=== PATIENT | male | born 1970 | race American Indian/Alaskan Native ===

== ENCOUNTER 2016-06-07 09:33 | Emergency (ER) | payer MEDICARE ==
[2016-06-07 09:43] VITALS: BP 111/72
--- NOTE | 2016-06-07 10:12 | Emergency Department Report ---
ED General Adult HPI - General Chief complaint: Upper Respiratory Infection Stated complaint: COUGH/CONGESTION Time Seen by Provider: 06/07/16 09:56 Source: patient Mode of arrival: Ambulatory Limitations: No Limitations - History of Present Illness Initial comments: 45-year-old male presents to the ED complaining about cough, chest congestion, sinus congestion, sore scratchy throat. States taking [id number] medication with no relief. Denies fever, chest pain, shortness of breath, abdominal pain. - Related Data Home Medications Medication Instructions Recorded Confirmed Last Taken Carbidopa/Levodopa 25-100 1 tab PO QID 06/07/16 06/07/16 06/07/16 Previous Rx's Medication Instructions Recorded Last Taken Type ALBUTEROL Inhaler [ProAir HFA 2 puff IH QID PRN #1 inhalation 06/07/16 Unknown Rx Inhaler] Azithromycin [Zithromax Z-ROBERT] 250 mg PO QDAY #1 pack 06/07/16 Unknown Rx Prednisone [predniSONE 10 mg 10 mg PO .TAPER #1 tab.ds.pk 06/07/16 Unknown Rx (6-Day Pack, 21 Tabs)] guaiFENesin/CODEINE [Robitussin AC] 5 ml PO Q6H #120 ml 06/07/16 Unknown Rx Allergies Allergy/AdvReac Type Severity Reaction Status Date / Time amoxicillin trihydrate Allergy Headache Verified 09/05/15 10:24 [From Augmentin] potassium clavulanate Allergy Headache Verified 09/05/15 10:24 [From Augmentin] ED Review of Systems ROS: Stated complaint: COUGH/CONGESTION Other details as noted in HPI Constitutional: chills. denies: fever Eyes: denies: eye pain, eye discharge, vision change ENT: throat pain. denies: ear pain Respiratory: cough. denies: shortness of breath, wheezing Cardiovascular: denies: chest pain, palpitations Endocrine: no symptoms reported Gastrointestinal: denies: abdominal pain, nausea, diarrhea Genitourinary: denies: urgency, dysuria Musculoskeletal: denies: back pain, joint swelling, arthralgia Skin: denies: rash, lesions Neurological: denies: headache, weakness, paresthesias Psychiatric: denies: anxiety, depression Hematological/Lymphatic: denies: easy bleeding, easy bruising ED Past Medical Hx - Past Medical History Previous Medical History?: Yes Hx Headaches / Migraines: Yes Additional medical history: Parkinsons - Surgical History Past Surgical History?: Yes Additional Surgical History: right shoulder, left index finger, groin area, right knee X 3, left knee X 2 - Social History Smoking Status: Never Smoker Substance Use Type: Prescribed - Medications Home Medications: Home Medications Medication Instructions Recorded Confirmed Last Taken Type ALBUTEROL Inhaler [ProAir HFA 2 puff IH QID PRN #1 inhalation 06/07/16 Unknown Rx Inhaler] Azithromycin [Zithromax Z-ROBERT] 250 mg PO QDAY #1 pack 06/07/16 Unknown Rx Carbidopa/Levodopa 25-100 1 tab PO QID 06/07/16 06/07/16 06/07/16 History Prednisone [predniSONE 10 mg 10 mg PO .TAPER #1 tab.ds.pk 06/07/16 Unknown Rx (6-Day Pack, 21 Tabs)] guaiFENesin/CODEINE [Robitussin AC] 5 ml PO Q6H #120 ml 06/07/16 Unknown Rx ED Physical Exam - General Limitations: No Limitations General appearance: alert, in no apparent distress - Head Head exam: Present: atraumatic, normocephalic - Eye Eye exam: Present: normal appearance - ENT ENT exam: Present: normal orophraynx, mucous membranes moist, TM's normal bilaterally - Neck Neck exam: Present: normal inspection, full ROM. Absent: tenderness, meningismus - Respiratory Respiratory exam: Present: normal lung sounds bilaterally. Absent: respiratory distress, wheezes, rales, rhonchi, stridor - Cardiovascular Cardiovascular Exam: Present: regular rate, normal rhythm. Absent: systolic murmur, diastolic murmur, rubs, gallop - GI/Abdominal GI/Abdominal exam: Present: soft, normal bowel sounds - Rectal Rectal exam: Present: deferred - Extremities Exam Extremities exam: Present: normal inspection - Back Exam Back exam: Present: normal inspection - Neurological Exam Neurological exam: Present: alert, oriented X3 - Psychiatric Psychiatric exam: Present: normal affect, normal mood - Skin Skin exam: Present: warm, dry, intact, normal color. Absent: rash ED Course Vital Signs 06/07/16 09:41 Temperature 98.2 F Pulse Rate 75 Respiratory 20 Rate Blood Pressure 111/72 O2 Sat by Pulse 100 Oximetry ED Medical Decision Making - Medical Decision Making patient resting comfortably. symptoms consistent with viral syndrome. patient requesting zpack anyway. NAD at this time. Critical care attestation.: If time is entered above; I have spent that time in minutes in the direct care of this critically ill patient, excluding procedure time. ED Disposition Clinical Impression: URI, acute, Acute bronchitis Disposition: DISCHARGED TO HOME OR SELFCARE Is pt being admited?: No Does the pt Need Aspirin: No Condition: Good Instructions: Acute Bronchitis (ED) Prescriptions: ALBUTEROL Inhaler [ProAir HFA Inhaler] 2 puff IH QID PRN #1 inhalation PRN Reason: Shortness Of Breath Azithromycin [Zithromax Z-ROBERT] 250 mg PO QDAY #1 pack guaiFENesin/CODEINE [Robitussin AC] 5 ml PO Q6H #120 ml Prednisone [predniSONE 10 mg (6-Day Pack, 21 Tabs)] 10 mg PO .TAPER #1 tab.ds.pk Referrals: PRIMARY CARE, [Primary Care Provider] - 3-5 Days [facility] [Provider Group] - 3-5 Days Forms: Work/School Release Form(ED) Time of Disposition: 10:12
== END 2016-06-07 10:20 | disposition home or self-care (01) ==
LOC: ED 09:33
DX: J06.9 Acute upper respiratory infection, unspecified (principal); J20.9 Acute bronchitis, unspecified; G20 Parkinson's disease; Z88.1 Allergy status to other antibiotic agents; Z88.8 Allergy status to other drugs, medicaments and biological substances
CPT/HCPCS: 99282

== ENCOUNTER 2016-08-02 13:23 | Emergency (ER) | payer MEDICARE ==
[2016-08-02 14:08] VITALS: BP 130/87
== END 2016-08-02 18:24 | disposition left against medical advice (07) ==
LOC: ED 13:23
DX: H92.01 Otalgia, right ear (principal); G43.909 Migraine, unspecified, not intractable, without status migrainosus; Z88.1 Allergy status to other antibiotic agents; Z88.8 Allergy status to other drugs, medicaments and biological substances; Z53.21 Procedure and treatment not carried out due to patient leaving prior to being seen by health care provider